=== PATIENT | female | born 1950 | race Two or more races ===

== ENCOUNTER → 2017-05-23 06:58 | Outpatient (CLI) | payer OTHER ==
[~2017-05-23 06:58] MED LIST: CARTIA XT180 MG; CARTIA XT180 MG PO; FLONASE16 GM NS; GILTUSS TR TAB1 EACH PO; HYZAAR 50-12.1 UDTAB; HYZAAR 50-12.1 UDTAB PO; SYNTHROID75 MCG PO; SYNTHROID88 MCG PO; VOLTAREM 75 MG PO; ZITHROMAX200 MG PO
== END | disposition home or self-care (01) ==
LOC: LAB 06:58
DX: E78.2 Mixed hyperlipidemia (principal); R73.02 Impaired glucose tolerance (oral); E03.8 Other specified hypothyroidism; I10 Essential (primary) hypertension

== ENCOUNTER 2017-08-31 08:07 | Emergency (ER) | payer OTHER ==
[~2017-08-31] VITALS: Ht 147.3 cm; Wt 49.9 kg
== END 2017-08-31 12:40 | disposition home or self-care (01) ==
LOC: ER 08:07
DX: R00.2 Palpitations (principal)

== ENCOUNTER → 2017-10-26 16:25 | Outpatient (CLI) | payer OTHER | END | disposition home or self-care (01) | LOC: RAD 16:25 | DX: M54.89 Other dorsalgia (principal); M79.672 Pain in left foot ==

== ENCOUNTER 2017-11-25 07:04 | Outpatient (CLI) | payer OTHER | END 2017-11-25 07:20 | disposition home or self-care (01) | LOC: LAB 07:04 | DX: E03.8 Other specified hypothyroidism (principal); E78.4 Other hyperlipidemia; I10 Essential (primary) hypertension ==

== ENCOUNTER 2018-05-27 11:41 | Outpatient (CLI) | payer OTHER ==
[~2018-05-27 11:41] MED LIST changes: +ETODOLAC400 MG PO; +PEPCID40 MG PO
== END 2018-05-27 16:07 | disposition home or self-care (01) ==
LOC: MRI 11:41
DX: M54.5 Low back pain (principal)
CPT/HCPCS: 72148

== ENCOUNTER 2018-05-30 12:08 | Outpatient (CLI) | payer OTHER | END 2018-05-30 12:22 | disposition home or self-care (01) | LOC: MAMO-SONO 12:08 | DX: N64.4 Mastodynia (principal); R10.2 Pelvic and perineal pain; Z12.31 Encounter for screening mammogram for malignant neoplasm of breast ==

== ENCOUNTER 2018-06-06 06:55 | Outpatient (CLI) | payer OTHER | END 2018-06-06 07:03 | disposition home or self-care (01) | LOC: LAB 06:55 | DX: N84.2 Polyp of vagina (principal); D64.89 Other specified anemias; N39.0 Urinary tract infection, site not specified; E03.8 Other specified hypothyroidism; E78.49 Other hyperlipidemia; Z00.00 Encounter for general adult medical examination without abnormal findings; I10 Essential (primary) hypertension ==

== ENCOUNTER 2018-06-12 11:32 | Outpatient (CLI) | payer OTHER ==
[2018-06-13] MEDS ORDERED: PEPCID20 MG PO (16:54)
== END 2018-06-12 11:35 | disposition home or self-care (01) ==
LOC: RAD 11:32
DX: I10 Essential (primary) hypertension (principal); N84.2 Polyp of vagina

== ENCOUNTER 2018-06-17 08:20 | Day surgery (SDC) | payer OTHER ==
[~2018-06-17 08:20] MED LIST changes: +PEPCID20 MG PO
[2018-06-17] MEDS ORDERED: NAPROXEN SODIU550 M1 PO (15:34)
== END 2018-06-17 17:16 | disposition home or self-care (01) ==
LOC: CIR.AMB 08:20 → LAB 16:23 → CIR.AMB 17:16
DX: N81.11 Cystocele, midline (principal)

== ENCOUNTER 2018-07-24 15:22 | Outpatient (CLI) | payer OTHER ==
[~2018-07-24 15:22] MED LIST changes: +NAPROXEN SODIU550 M1 PO
== END 2018-07-24 15:25 | disposition home or self-care (01) ==
LOC: LAB 15:22
DX: Z11.3 Encounter for screening for infections with a predominantly sexual mode of transmission (principal)

== ENCOUNTER → 2018-09-05 | Outpatient (CLI) | payer OTHER | END | disposition home or self-care (01) | LOC: NUCLEAR 07:00 | DX: R07.89 Other chest pain (principal) ==

== ENCOUNTER → 2018-12-13 16:49 | Outpatient (CLI) | payer OTHER | END | disposition home or self-care (01) | LOC: LAB 16:49 | DX: J11.89 Influenza due to unidentified influenza virus with other manifestations (principal); J06.9 Acute upper respiratory infection, unspecified ==

== ENCOUNTER 2019-04-23 06:34 | Outpatient (CLI) | payer OTHER | END 2019-04-23 06:47 | disposition home or self-care (01) | LOC: LAB 06:34 | DX: D64.89 Other specified anemias (principal); R10.84 Generalized abdominal pain; E03.8 Other specified hypothyroidism; E78.49 Other hyperlipidemia ==

== ENCOUNTER → 2019-10-11 11:24 | Outpatient (CLI) | payer OTHER | END | disposition home or self-care (01) | LOC: LAB 11:24 | PROVIDERS: ATTEND Internal Medicine | DX: E78.49 Other hyperlipidemia (principal); D64.89 Other specified anemias; R10.84 Generalized abdominal pain; R80.8 Other proteinuria; E11.9 Type 2 diabetes mellitus without complications; E03.8 Other specified hypothyroidism ==

== ENCOUNTER → 2020-01-08 | Outpatient (CLI) | payer OTHER | END | disposition home or self-care (01) | LOC: PPH VACUNA 09:00 | DX: Z23 Encounter for immunization (principal) ==

== ENCOUNTER 2020-03-22 15:37 | Outpatient (CLI) | payer OTHER | END 2020-03-22 15:42 | disposition home or self-care (01) | LOC: RAD 15:37 | DX: I10 Essential (primary) hypertension (principal) ==

== ENCOUNTER 2020-03-23 07:23 | Outpatient (CLI) | payer OTHER | END 2020-03-23 07:29 | disposition home or self-care (01) | LOC: LAB 07:23 | DX: R50.9 Fever, unspecified (principal) ==

== ENCOUNTER 2020-03-30 10:22 | Outpatient (CLI) | payer OTHER | END 2020-03-30 10:25 | disposition home or self-care (01) | LOC: PPH VACUNA 10:22 | DX: Z23 Encounter for immunization (principal) ==

== ENCOUNTER 2020-04-20 06:47 | Outpatient (CLI) | payer OTHER | END 2020-04-20 06:53 | disposition home or self-care (01) | LOC: LAB 06:47 | PROVIDERS: ATTEND Internal Medicine | DX: I10 Essential (primary) hypertension (principal); E78.2 Mixed hyperlipidemia; E11.9 Type 2 diabetes mellitus without complications; E03.8 Other specified hypothyroidism ==

== ENCOUNTER 2020-09-01 15:04 | Outpatient (CLI) | payer OTHER | END 2020-09-01 15:13 | disposition home or self-care (01) | LOC: MAMO-SONO 15:04 | PROVIDERS: ATTEND General Practice | DX: N64.4 Mastodynia (principal) ==

== ENCOUNTER 2020-10-16 08:33 | Outpatient (CLI) | payer OTHER | END 2020-10-16 08:36 | disposition home or self-care (01) | LOC: LAB 08:33 | PROVIDERS: ATTEND Internal Medicine | DX: D64.89 Other specified anemias (principal); N39.0 Urinary tract infection, site not specified; E03.8 Other specified hypothyroidism; E78.49 Other hyperlipidemia; E55.9 Vitamin D deficiency, unspecified ==

== ENCOUNTER 2020-11-12 08:02 | Outpatient (CLI) | payer OTHER | END 2020-11-12 18:50 | disposition home or self-care (01) | LOC: LAB 08:02 | PROVIDERS: ATTEND Internal Medicine | DX: E03.8 Other specified hypothyroidism (principal) ==

== ENCOUNTER 2020-11-12 09:05 | Outpatient (CLI) | payer OTHER | END 2020-11-12 09:07 | disposition home or self-care (01) | LOC: NUCLEAR 09:05 | PROVIDERS: ATTEND Internal Medicine | DX: R01.1 Cardiac murmur, unspecified (principal) ==

== ENCOUNTER 2021-03-18 09:00 | Outpatient (CLI) | payer OTHER | END 2021-03-18 09:30 | disposition home or self-care (01) | LOC: PPH VACUNA 09:00 | PROVIDERS: ATTEND Emergency Medicine Pediatric Emergency Medicine | DX: Z23 Encounter for immunization (principal) | CPT/HCPCS: 90686; G0008 ==

== ENCOUNTER 2021-09-14 14:21 | Outpatient (CLI) | payer OTHER | END 2021-09-14 14:22 | disposition home or self-care (01) | LOC: SONOGRAMA 14:21 | PROVIDERS: ATTEND Internal Medicine Endocrinology, Diabetes & Metabolism | DX: E04.2 Nontoxic multinodular goiter (principal); R59.0 Localized enlarged lymph nodes ==

== ENCOUNTER → 2021-09-14 | Outpatient (CLI) | payer OTHER | END | disposition home or self-care (01) | LOC: NUCLEAR 09-09 13:15 | PROVIDERS: ATTEND Internal Medicine Endocrinology, Diabetes & Metabolism | DX: M85.89 Other specified disorders of bone density and structure, multiple sites (principal); Z13.820 Encounter for screening for osteoporosis; Z88.1 Allergy status to other antibiotic agents ==

== ENCOUNTER 2022-01-13 15:26 | Outpatient (CLI) | payer OTHER | END 2022-01-13 15:48 | disposition home or self-care (01) | LOC: RAD 15:26 | PROVIDERS: ATTEND Internal Medicine Rheumatology | DX: M49.82 Spondylopathy in diseases classified elsewhere, cervical region (principal); M49.84 Spondylopathy in diseases classified elsewhere, thoracic region; M49.87 Spondylopathy in diseases classified elsewhere, lumbosacral region; M19.011 Primary osteoarthritis, right shoulder; M19.012 Primary osteoarthritis, left shoulder; M50.320 Other cervical disc degeneration, mid-cervical region, unspecified level; M51.34 Other intervertebral disc degeneration, thoracic region; M51.37 Other intervertebral disc degeneration, lumbosacral region ==

== ENCOUNTER 2023-04-02 10:08 | Outpatient (CLI) | payer OTHER | END 2023-04-02 10:19 | disposition home or self-care (01) | LOC: MAMO-SONO 10:08 | PROVIDERS: ATTEND Internal Medicine | DX: Z12.39 Encounter for other screening for malignant neoplasm of breast (principal); N60.39 Fibrosclerosis of unspecified breast; Z12.31 Encounter for screening mammogram for malignant neoplasm of breast ==

== ENCOUNTER 2023-05-16 08:45 | Outpatient (CLI) | payer OTHER | END 2023-05-16 08:58 | disposition home or self-care (01) | LOC: TOM 08:45 | PROVIDERS: ATTEND Internal Medicine Gastroenterology | DX: K57.32 Diverticulitis of large intestine without perforation or abscess without bleeding (principal) | CPT/HCPCS: 74177; Q9965 ==